=== PATIENT | male | born 1930 | race Caucasian/White ===

== ENCOUNTER 2017-01-14 09:38 | Inpatient (IN) | payer OTHER ==
--- NOTE | ~2017-01-14 | CO ---
Unit #: [id number] #: [id number] Patient: CONNOR FRANK [id number] [address] [place], [place] [address] [id number] I MR#: [id number] NAME: CONNOR FRANK. ROOM: 240 Age: 86 Sex: M Admission Date: 01/14/2017 : 1930 Attending Physician: Luis Felipe Saleh M.D. Primary Care Physician: Len Johnston M.D. Consultation Date: 01/17/2017 CONSULTATION REPORT REASON FOR CONSULTATION Voiding difficulty. HISTORY OF PRESENT ILLNESS This 86-year-old man has presented for evaluation of a large rectal tumor noted on colonoscopy. He has been seen by Gastroenterology, General Surgery, Oncology, and Radiation Oncology with completion of workup pending MRI and biopsy results and is otherwise ready for discharge from hospital. It is entirely clear at this time which treatment will be most appropriate. I am consulted, because he has clear voiding difficulty and voids more easily standing up and sitting down. He has frequency and urgency. He has been taking Flomax for three years. Bladder scans in the hospital postvoid have varied from 230 to 430 mL. He has been relatively comfortable and not required a Kinney catheter. He denies any history of gross hematuria, urinary infection, or stone disease. He has had PSA testing in the past. He appears cleared for major surgery from a cardiac viewpoint. PAST MEDICAL HISTORY Includes previous colonoscopies and polypectomy, BPH, diabetes, hypertension, hypercholesterolemia, glaucoma, primary AV block. PAST SURGICAL HISTORY Other than colonoscopies, right inguinal herniorrhaphy. MEDICATIONS Include Celebrex, Lipitor, hydrochlorothiazide, Glucophage, multivitamins, Flomax 0.4 mg daily, and Lotrel. ALLERGIES None known. FAMILY HISTORY Noncontributory. SOCIAL HISTORY Remote smoker. REVIEW OF SYSTEMS Voiding difficulties as above. No weight loss, melena, or hematochezia. Voiding symptoms as noted. Otherwise, negative review. PHYSICAL EXAMINATION Unit #: [id number] #: [id number] Patient: CONNOR FRANK GENERAL: The patient is a very alert, oriented, and conversant 86-year-old man. HEENT: Unremarkable. LUNGS: Clear. CARDIAC: Rate and rhythm regular. ABDOMEN: Soft and nontender. GENITALIA: Normal, circumcised penis. Testes and epididymis normal descended. RECTAL: Digital exam; normal anus, sphincter tone, tender hard mass in the left side of the rectum making prostatic examination difficult and incomplete. DIAGNOSTIC STUDIES LABORATORY RESULTS: Include BUN 6, creatinine 0.8, hemoglobin 12.0. IMAGING STUDIES: CT scan with IV contrast shows bilateral renal cysts. Otherwise, normal kidneys. Prostate enlargement moderate with a median lobe. Chronic bladder wall thickening. Left-sided bladder diverticulum in addition to the right rectal mass. IMPRESSION Severe prostatism and chronic urinary retention despite alpha ok therapy likely to progress the urinary retention regardless of whether an abdominal perineal resection or simply radiation and chemotherapy as likely bladder dysfunction will increase in addition to local effects on the prostate. I recommend strong consideration for a pre-emptive TUR of prostate, but would defer until after initial staging MRI and planned treatment course. PLAN May discharge home from [facility]. We will increase tamsulosin to twice daily and start him on finasteride after checking a PSA. We will await biopsy results and remainder of workup as well as clearance from all specialists and see the patient back in 2 weeks. Thank you for the consultationDm. Dictated by... Shen Astorga M.D. [facility]/jannette TD: 01/17/2017 15:36 JOB #: [id number] Mamadou Palmer M.D. Shen Aguilera M.D. Cody Stone M.D. Unit #: [id number] #: [id number] Patient: CONNOR FRANK CONSULTATION REPORT X Shen Astorga MD X CONSULTATION REPORT
--- NOTE | ~2017-01-14 | CR63 ---
[facility] A Service of [facility] & [facility] RADIOLOGY TEXT RESULTS PATIENT: CONNOR FRANK LOCATION: C2A 240-01 : [birth year] UNIT #: [id number] AGE: [address]: Luis Felipe Saleh MD SEX: M ORDER DR: [id number] [facility] [address] [place], [place] [address] [id number] I MR#: [id number] Acc #: [id number] NAME: CONNOR FRANK. : 1930 SEX: M STUDY DATE/TIME: 01/14/2017 17:23 UNIT: [facility] ROOM: 240 STUDY DESCRIPTION: CR Chest 2 View Attending Physician: Luis Felipe Saleh M.D. Ordering Physician: Jeff Wang M.D. Primary Care Physician: Len Johnston M.D. MEDICAL IMAGING REPORT This report is preliminary unless electronic signature is present EXAM Chest PA and lateral dated 01/14/2017 COMPARISON STUDIES None HISTORY Abdominal pain, chest pain and weakness today after colonoscopy. PA and lateral views of the chest are obtained. FINDINGS The heart size is normal. Vascular pattern is normal. Lungs are hyperinflated but clear. There is atherosclerotic disease in the aorta. CONCLUSION No active disease. Dictated by... Guilherme Woodard M.D. THIS IS AN ELECTRONICALLY VERIFIED REPORT Guilherme Woodard M.D. at 01/18/2017 5:10 PM IVANA/johnna TD: 01/15/2017 07:46 JOB #: [id number] MEDICAL IMAGING REPORT Page 1 of 1 COPY
--- NOTE | ~2017-01-14 | CO ---
Unit #: [id number] #: [id number] Patient: CONNOR FRANK [id number] [address] [place], [place] [address] [id number] I MR#: [id number] NAME: CONNOR FRANK ROOM: 240 Age: 86 Sex: M Admission Date: 01/14/2017 : 1930 Attending Physician: Luis Felipe Saleh M.D. Primary Care Physician: Len Johnston M.D. CONSULTATION REPORT REASON FOR CONSULTATION Preoperative evaluation. HISTORY OF PRESENT ILLNESS This is an 86-year-old white male, who presented for colonoscopy. He was found to have rectal mass and colon polyps that was suspicious for malignancy. The patient reports no abdominal pain, but had pain when sitting. He has no chest pain, palpitations, dizziness, or dyspnea. Because he may need a surgical intervention, cardiology was consulted. According to the patient, he has had no prior cardiac testing. He went to his primary care physician recently and was told that he had an irregular heartbeat and was scheduled to see a sales and management trainee in January. He cut the grass at least twice already this year without symptoms. He states he is fairly active. He reports no paroxysmal nocturnal dyspnea, orthopnea, or leg edema. PAST MEDICAL HISTORY 1. Hypertension. 2. Hyperlipidemia. 3. Diabetes mellitus, type 2. 4. Obstructive sleep apnea, does not wear CPAP. 5. Former smoker. PAST SURGICAL HISTORY Hernia repair. SOCIAL HISTORY The patient is . He quit smoking more than 40 years ago, but previously smoked more than a pack of cigarettes daily. Drinks beer on occasion. No illicit drug use. FAMILY HISTORY Negative for coronary artery disease. ALLERGIES No known drug allergies. HOME MEDICATIONS Celebrex 200 mg daily, Lipitor 10 mg daily, hydrochlorothiazide 12.5 mg daily, Glucophage 500 mg b.i.d., multivitamin one tablet daily, Flomax 0.4 mg q.h.s., Lotrel 5/20 mg one cap daily. REVIEW OF SYSTEMS CONSTITUTIONAL: Negative for weakness or fatigue. No fever or chills. Unit #: [id number] #: [id number] Patient: CONNOR FRANK HEENT: No headache, hearing or vision changes, or difficulty with swallowing. Negative for dizziness. CARDIOVASCULAR: Has no symptoms of angina. Denies palpitations. No paroxysmal nocturnal dyspnea or orthopnea. No syncope or near syncope. RESPIRATORY: Negative for dyspnea, cough, or hemoptysis. GASTROINTESTINAL: No abdominal pain, nausea, or vomiting. Denies hematochezia or melena. EXTREMITIES: Negative for lower extremity edema. PHYSICAL EXAMINATION VITAL SIGNS: Blood pressure 128/52, heart rate 74. BMI 27. GENERAL: This is a well-developed 86-year-old mildly obese white male, who is in no acute distress. NEUROLOGIC: He is awake, alert, and oriented. There are no focal weaknesses. NECK: Trachea is midline. No thyromegaly or lymphadenopathy. No jugular venous distention. HEART: S1 and S2. Heart sounds are normal. No murmurs. No rubs or clicks. Regularly irregular rhythm. ABDOMEN: Soft, slightly distended with bowel sounds are present. EXTREMITIES: With weak pedal pulses, but no leg edema. SKIN: Warm and dry. DIAGNOSTIC STUDIES LABORATORY RESULTS: Hemoglobin 13.3, hematocrit 41.0, platelet count 300, and white count 14.0. Chemistry is pending. IMAGING STUDIES: Chest x-ray pending. CARDIOVASCULAR STUDIES: EKG pending. IMPRESSION 1. Rectal mass, questionable malignancy. 2. Hypertension. 3. Hyperlipidemia. 4. Diabetes mellitus, type 2. 5. Obstructive sleep apnea. PLAN 1. Cardiology was consulted for preoperative evaluation. 2. The patient has no symptoms of angina. He has no heart failure noted on examination. 3. We will obtain EKG to evaluate his irregular rhythm. 4. 2D echocardiogram will be performed to evaluate left ventricular systolic function. 5. Because of multiple risk factors, the patient needs at least a stress Cardiolite scan. This has been discussed with the patient and family, they are agreeable. 6. We will obtain baseline chest x-ray. 7. Final determination of preoperative evaluation is pending Dr. Wang's evaluation and results of test. Thank you for allowing us to assist in this patient's care. Dictated by... Reese Funes A.P.R.N. for Jeff Wang M.D. Unit #: [id number] #: [id number] Patient: ZACCONNOR Liana AEP/jannette TD: 01/15/2017 04:05 JOB #: [id number] CONSULTATION REPORT X Reese Funes APRN CONSULTATION REPORT
--- NOTE | ~2017-01-14 | OR ---
Unit #: [id number] #: [id number] Patient: CONNOR FRANK [id number] [address] [address] [id number] I MR#: [id number] NAME: CONNOR FRANK ROOM: 240 Date of Procedure: 01/14/2017 Admission Date: 01/14/2017 Surgeon: Luis Felipe Saleh M.D. : 1930 Attending Physician: Luis Felipe Saleh M.D. Primary Care Physician: Len Johnston M.D. PROCEDURE OPERATIVE NOTE PROCEDURE PERFORMED Colonoscopy with biopsy. INDICATION Patient with irregular bowel movements, blood in stool, history of colon polyps in the past, undergoing colonoscopy for evaluation. MEDICATIONS Monitored anesthesia. POSTOP FINDINGS 1. Large rectal mass within a centimeter of the dentate line, goes up to 12 cm, firm. Multiple biopsies taken. Most likely malignant. 2. Small, 2 cm long, 0.5 cm wide hepatic flexure mass, biopsied. 3. Rest of the colon exam to cecum was normal. 4. Diverticulosis. PLAN Follow up on pathology report. Consider options, including surgery. DESCRIPTION OF PROCEDURE The patient was explained the procedure risks and benefits, along with the risk and benefits of anesthesia. He was brought to the endoscopy room. Propofol anesthesia was given. Rectal exam was done, which showed the firm mass as described above. Scope was lubricated and passed through the rectum and advanced under direction vision all the way to the cecum. Findings have been described. Biopsies taken from both masses. Gently the scope was pulled out. He tolerated it well. No immediate complications. Dictated by... Cody Alfaro/kedar TD: 01/18/2017 11:08 JOB #: [id number] Unit #: [id number] #: [id number] Patient: CONNOR FRANK PROCEDURE OPERATIVE NOTE X Luis Felipe Saleh MD PROCEDURE OPERATIVE NOTE
--- NOTE | ~2017-01-14 | CO ---
Unit #: [id number] #: [id number] Patient: MILES GRANADO [id number] [address] [place], [place] [address] [id number] I MR#: [id number] NAME: MILES GRANADO ROOM: 240 Age: 86 Sex: M Admission Date: 01/14/2017 : 1930 Attending Physician: Luis Felipe Saleh M.D. Primary Care Physician: Len Johnston M.D. CONSULTATION REPORT REASON FOR CONSULTATION Newly diagnosed rectal cancer with a second (1) polyp at the transverse colon. HISTORY OF PRESENT ILLNESS Mr. Miles Granado is 86 years old with a history of adenomatous polyposis who last underwent a colonoscopy in 2007 after having three polyps removed in 2004. He was recently re-evaluated because of incontinence with some rectal leakage. On colonoscopy on January 15, he was found to have a large mass in the rectum with a 1 cm dentate line extending to 12 cm involving two-thirds of the circumference with multiple biopsies taken. There was a smaller mass in transverse colon 2 cm x 0.5 cm which was biopsied. Biopsies were discussed with Dr. Ross. The rectal biopsy shows intramucosal adenocarcinoma while as the transverse colon polyp shows high-grade dysplasia but clear invasive malignancy could not be identified. He has since had a CT scan of the abdomen and pelvis along with a CA level. Postprocedure, Mr. Granado had a lot of abdominal discomfort which was relieved by evacuation of air on the rectal examination. Mr. Granado tells me he has lost about ten pounds in weight in the past six weeks or so, in part from anxiety. No prior history of any malignancy. PAST HISTORY 1. Glaucoma. 2. BPH. 3. Type 2 diabetes. 4. Hypertension. 5. Hypercholesterolemia. PAST SURGICAL HISTORY Right inguinal hernia repair. FAMILY HISTORY Negative for polyps or colon cancer. SOCIAL HISTORY Smoked briefly many years ago. Drinks alcohol rarely. He is and lives with his . He has four daughters. REVIEW OF SYSTEMS 14 point review of systems taken. CONSTITUTIONAL: Ten pound weight loss as discussed. EYES: Glaucoma. EARS, NOSE, MOUTH AND THROAT: Negative. Unit #: [id number] #: [id number] Patient: MILES GRANADO CARDIOVASCULAR: Negative. RESPIRATORY: Negative. GASTROINTESTINAL: As discussed. GENITOURINARY: Negative. NEUROLOGICAL: Negative. SKIN: Negative. PSYCHIATRIC: Negative. PHYSICAL EXAMINATION GENERAL: Pleasant, elderly man lying in bed, currently in no distress. VITAL SIGNS: Temperature is 98, pulse rate of 66, respiratory rate is 17, blood pressure 127/62. O2 sat 98% on room air. HEENT: Pupils are equal, react well to light. No pallor or icterus. Mucous membranes are moist. NECK: No lymphadenopathy, JVD or thyromegaly. CARDIOVASCULAR: S1 and S2 heart sounds are heard. Regular with no murmurs, gallops or rubs. LUNGS: Chest expansion was symmetric. Bilateral equal air entry. Normal breath sounds. ABDOMEN: Soft, nontender. Liver and spleen not palpable. Bowel sounds active. EXTREMITIES: Normal good pulses. No edema, cyanosis or clubbing. NEUROLOGICAL: He is awake, alert, oriented x3 without any focal findings. PSYCHIATRIC: Normal affect. SKIN: Negative. LYMPHATIC: No palpable lymph nodes. DIAGNOSTIC STUDIES LABORATORY: White count 14, hemoglobin 13.3, MCV is 91, platelet count is 300. Complete metabolic panel shows a BUN of 10, creatinine is 0.8, glucose of 136. LFTs are normal. CEA level is 1.2, normal. IMAGING: CT scan of the abdomen and pelvis was reviewed by me and discussed with Dr. Newman. He has no evidence of metastatic disease in the liver. The transverse colon polyp is not clearly visualized; however, he has a very low rectal cancer extending to the pelvic sidewall which appears to be infiltrating the left seminal vesicles in the plane that is difficult to establish from the prostate. ASSESSMENT AND PLAN Mr. Miles Granado is an 86-year-old with a history of benign prostatic hypertrophy, type 2 diabetes, admitted with rectal bleeding with findings of a very low lying rectal mass with biopsy showing intramucosal adenocarcinoma at the very least along with a second polyp in the transverse colon which shows high-grade dysplasia and is slightly malignant as well. CT scan done does not show evidence of metastatic disease but does show locally advanced rectal cancer possibly extending to the prostate and left seminal vesicles because of its very low location. Mr. Granado has also been having some voiding symptoms for some time which may be connected. I had an extensive discussion with Dr. Vandana Granado of pathology, Unit #: [id number] #: [id number] Patient: MILES GRANADO Dr., Dr. Mamadou Palmer of radiation oncology along with patient. RECOMMENDATIONS 1. Pelvic MRI with contrast as well as a PET CT scan to be done as an outpatient to better define local extent of disease and clarify distant metastatic disease. The PET CT scan will also give us additional information about the transverse colon polyp. 2. Postvoid residual volume with urological consultation, especially since the CT scan also shows a bladder diverticulum indicating that he may have chronic obstructive uropathy. 3. We discussed the plans that include concurrent chemoradiation therapy or thereafter (2) and, if he has a markedly good response, can consider nonoperative management of his rectal cancer but, given the local extent of disease, this seems unlikely. His transverse colon polyp will require it to be surgically removed and may be considered to be done laparoscopically depending upon the type of procedure he requires for his rectal cancer. Thank you for allowing me to participate in his care. Dictated by... Cody Stone/igor TD: 01/19/2017 06:40 JOB #: [id number] CONSULTATION REPORT Page 1 of 1 X Dm Brooke MD X CONSULTATION REPORT
--- NOTE | ~2017-01-14 | ST ---
Unit #: [id number] #: [id number] Patient: CONNOR FRANK [id number] [address] [place], [place] [address] [id number] I MR#: [id number] NAME: CONNOR FRANK. : 1930 SEX: M STUDY DATE/TIME: 01/15/2017 UNIT: C2A ROOM: 240 STUDY DESCRIPTION: Stress ECG and nuclear Attending Physician: Luis Felipe Saleh M.D. Primary Care Physician: Len Johnston M.D. CARDIOLOGY REPORT EXAM Stress ECG and nuclear study combined. INDICATIONS Abnormal EKG, preoperative clearance for colon resection in a patient unable to exercise adequately. SUMMARY The patient was given Lexiscan intravenously, and the patient walked on the treadmill at 1.5 MPH, 0% grade. As well, technetium 99m Cardiolite, 10.22 mCi and 32.4 mCi, at rest and stress respectively. Appropriate views were obtained. FINDINGS The rest and stress ECG showed no diagnostic ST shifts. There was nonspecific ST change noted in lead III and in AVF. At rest there were no significant PVCs. With stress there were single PVCs noted, occasional bigeminal, with occasional PACs. There were no symptoms noted. The heart rate increased from 79 to 116, and blood pressure did not change from 150/75 to 152/74. The patient did not experience any symptoms. Perfusion images demonstrate apical thinning at stress more than rest. There is diaphragmatic artifact both at rest and stress. There is intestinal artifact at both rest and stress. Otherwise, perfusion is normal and equivalent between rest and stress. Gated perfusion wall motion analysis demonstrates normal wall motion throughout the myocardium with end diastolic volume 97 mL, ejection fraction 57%. Planar images demonstrate no significant patient motion either at rest or stress. There is no significant lung uptake, LV or RV enlargement. Summed stress score is 1. IMPRESSION 1. Myocardial perfusion scan shows no ischemia or infarction. Inferior wall changes likely related to diaphragmatic artifact. 2. Normal stress ECG with walking Lexiscan. 3. Benign ventricular ectopy with Lexiscan. No treatment necessary for this. 4. Based on these findings, the patient would be considered at low risk for cardiac event from noncardiac surgery. Unit #: [id number] #: [id number] Patient: CONNOR FRANK Dictated by... Cody Escobar/kedar TD: 01/18/2017 10:04 JOB #: [id number] CARDIOLOGY REPORT X Corey Garner MD CARDIOLOGY REPORT
--- NOTE | ~2017-01-14 | ST ---
Unit #: [id number] #: [id number] Patient: CONNOR FRANK [address] [address] [id number] I MR#: [id number] NAME: CONNOR FRANK. : 1930 SEX: M STUDY DATE/TIME: 01/15/2017 UNIT: C2A ROOM: 240 STUDY DESCRIPTION: Stress Test Attending Physician: Luis Felipe Saleh M.D. Primary Care Physician: Len Johnston M.D. CARDIOLOGY REPORT EXAM Walking Lexiscan EKG Portion REASON FOR TESTING Abnormal EKG and preop clearance for colon mass per Dr. Saleh. DESCRIPTION The patient had a resting heart rate of 79 beats/minute and a blood pressure of 150/75 prior to infusion with Lexiscan. He had frequent PVCs noted but was in normal sinus rhythm. The patient received a total of 0.4 mg of Lexiscan injected per protocol followed by Cardiolite imaging. Patient's symptoms included none. Patient had no obvious ST changes but did have some frequent PVCs which were noted at both rest and during stress. The patient walked for a total of 4 minutes per protocol achieving a work level of 1.9 METs. Resting heart rate was 79 beats/minute, karma to a maximum heart rate of 120 beats/minute which represented 90% of the maximal age-predicted heart rate. Resting blood pressure of 150/75 karma to a maximum blood pressure of 152/74. The test was stopped due to protocol completion. IMPRESSION 1. This is a negative EKG portion of a walking Lexiscan Cardiolite test. 2. No ST segment changes were noted. 3. Patient was asymptomatic pre-infusion and post-infusion. 4. Patient had frequent PVCs with intermittent bigeminy and couplet complexes. However, patient was asymptomatic with these denying any palpitations. 5. Please correlate with Cardiolite imaging. Dictated by... NICHELLE Quach TD: 01/16/2017 07:45 JOB #: [id number] Unit #: [id number] #: [id number] Patient: CONNOR FRANK CARDIOLOGY REPORT X CARDIOLOGY REPORT
--- NOTE | ~2017-01-14 | EKG ---
PATIENT: CONNOR FRANK UNIT #: [id number] Ventricular Rate: 78 BPM Atrial Rate: 78 BPM P-R Interval: 210 ms QRS Duration: 90 ms Q-T Interval: 380 ms QTC Calculation(Bezet): 433 ms P Traphill: 49 degrees Calculated R Traphill: 8 degrees Calculated T Traphill: 2 degrees Diagnosis Line: Sinus rhythm with sinus arrhythmia with 1st degree Diagnosis Line: A-V block Diagnosis Line: Inferior infarct , age undetermined Baseline Diagnosis Line: wander Diagnosis Line: Abnormal ECG Diagnosis Line: No previous ECGs available Diagnosis Line: Confirmed by LOIS DIAZ MD ([id number]) on 01/15/2017 Diagnosis Line: 12:05:27 PM INTERPRETING MD: EMILY PETER
--- NOTE | ~2017-01-14 | CR4 ---
[facility] A Service of [facility] RADIOLOGY TEXT RESULTS PATIENT: CONNOR FRANK LOCATION: [facility] 240 : [birth year] UNIT #: [id number] AGE: [address]: Luis Felipe Saleh MD SEX: M ORDER DR: [id number] [facility] [address] [place], [place] [address] [id number] I MR#: [id number] Acc #: [id number] NAME: CONNOR FRANK. : 1930 SEX: M STUDY DATE/TIME: 01/14/2017 13:29 UNIT: [facility] ROOM: [facility] STUDY DESCRIPTION: CR Abdomen Flat Upright or Dec Attending Physician: Luis Felipe Saleh M.D. Ordering Physician: Luis Felipe Saleh M.D. Primary Care Physician: Len Johnston M.D. MEDICAL IMAGING REPORT This report is preliminary unless electronic signature is present EXAM Flat and upright abdomen in 5 views date of study 01/14/2017 COMPARISON None HISTORY Abdominal pain for one day following colonoscopy. FINDINGS There is mild gaseous distention of small and large bowel but there is no evidence on the supine images to suggest free intraperitoneal air. If there is continued concern about free intraperitoneal air, left lateral decubitus view of the abdomen might be helpful. Dictated by... Christopher Iraheta M.D. THIS IS AN ELECTRONICALLY VERIFIED REPORT Christopher Iraheta M.D. at 01/15/2017 4:12 PM TEV/rnr TD: 01/14/2017 19:36 JOB #: [id number] MEDICAL IMAGING REPORT COPY
--- NOTE | ~2017-01-14 | HP ---
Unit #: [id number] #: [id number] Patient: CONNOR FRANK [id number] [address] [place], [place] [address] [id number] I MR#: [id number] NAME: CONNOR FRANK. ROOM: 240 Age: 86 Sex: M Admission Date: 01/14/2017 : 1930 Attending Physician: Luis Felipe Saleh M.D. Primary Care Physician: Len Johnston M.D. HISTORY AND PHYSICAL HISTORY AND EXAM Mr. Aquino is an 86-year-old gentleman with a history of adenomatous polyps of the colon who underwent colonoscopy by Dr. Saleh today. On endoscopic evaluation there was a polyp at the hepatic flexure that was biopsied and there was a mass in the rectal vault that was concerning for malignancy. It has also been biopsied. We were asked to see the patient when he was in post endoscopy recovery because of the rectal mass. The patient is still under the effects of his sedation, so history and evaluation were done primarily with his family. PAST MEDICAL HISTORY He has a history of glaucoma. 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 He has had two prior colonoscopies with polypectomy. He has benign prostatic hypertrophy, type 2 diabetes, hypertension, hypercholesterolemia and he has had a previous right inguinal hernia repair. He reportedly had a spider but to the leg many years ago. FAMILY HISTORY The family is unaware of any chronic or inheritable diseases except for arthritis and diverticulitis. SOCIAL HISTORY Nonsmoker for many years. Only a social alcohol drinker. He is retired from [employer]. He has four daughters and one son and multiple grandchildren and great grandchildren. REVIEW OF SYSTEMS No hematemesis, hematochezia or melena. No fever, chills, or jaundice. No unexpected weight loss. PHYSICAL EXAMINATION VITAL SIGNS: At the time of endoscopy temperature is 97.1, pulse 94, respirations 18, blood pressure 128/59. GENERAL: He was awake and alert but he is currently in recovery and still somewhat sedated. HEENT: Was unremarkable. CARDIAC: Regular rhythm. LUNGS: Clear. ABDOMEN: Slightly distended but soft. No rebound tenderness. EXTREMITIES: No edema. NEUROLOGIC: Grossly intact. DIAGNOSTIC STUDIES Unit #: [id number] #: [id number] Patient: CONNOR FRANK LABORATORY STUDIES: His white count is 14,000, hemoglobin 13.3, with normal indices. Platelets 300,000. Chemistries are still pending. CEA level has been ordered and is pending. IMAGING STUDIES: CT scan has been ordered and is pending. ASSESSMENT AND PLAN 86-year-old gentleman with a rectal mass concerning for malignancy. Patient is being evaluated and we will speak with medical oncology to determine the most appropriate course of treatment. I discussed at length with the family the treatment of rectal cancer with a combination of surgery, chemotherapy and radiation therapy and stated that based on his clinical stage will determine whether or not he needs preoperative adjuvant therapy or whether he should go straight to surgery. Due to his age and diabetes and primary AV block, we will as cardiology to see the patient for preoperative clearance. Medical oncology is yet to see the patient. I have discussed this at length with is , two daughters, and a granddaughter and we will continue to follow him while he is here. Dictated by Cody Orantes/lena TD: 01/15/2017 06:06 JOB #: [id number] HISTORY AND PHYSICAL X Shen Aguilera MD HISTORY AND PHYSICAL
--- NOTE | ~2017-01-14 | MR151 ---
[facility] A Service of [facility] & [facility] RADIOLOGY TEXT RESULTS PATIENT: CONNOR FRANK LOCATION: C2A 240-01 : [birth year] UNIT #: [id number] AGE: [address]: Luis Felipe Saleh MD SEX: M ORDER DR: [id number] [facility] [address] [place], [place] [address] [id number] I MR#: [id number] Acc #: [id number] NAME: CONNOR FRANK. : 1930 SEX: M STUDY DATE/TIME: 01/18/2017 10:57 UNIT: [facility] ROOM: 240 STUDY DESCRIPTION: MR Pelvis WWo Contrast Attending Physician: Luis Felipe Saleh M.D. Ordering Physician: Luis Felipe Saleh M.D. Primary Care Physician: Len Johnston M.D. MRI CENTER REPORT This report is preliminary unless electronic signature is present. EXAM MRI pelvis with and without contrast INDICATIONS Rectal mass on colonoscopy. Rectal mass. Staging. Unexplained 10 pounds weight loss over the past 2 months. PROCEDURE Multiplanar, multisequence MR imaging of the pelvis prior to and following 20 mL of MultiHance COMPARISON STUDIES CT from 01/15/2017 FINDINGS Pelvis without contrast: There is a large rectal mass. It measures approximately 9.4 cm in length. Inferior margin extends into the lower rectum proximally today. No rectal junction. The mass is circumferential. It has a large, fungating component that extends beyond the wall of the rectum, along the left lower margin of the mass at approximately 3 o'clock. This component measures approximately 3.0 x 2.7 cm and has a broad interface with the mesial rectal fascia and upper left pelvic floor muscles. The mass abuts the posterior margin of the prostate gland, but there is no definite extension into the prostate gland. No evidence for involvement of the seminal vesicles. There is some stranding seen in the mesial rectal fat but no discrete enlarged lymph nodes. No pathologically enlarged lymph nodes are seen elsewhere in the pelvis. Prostate gland is enlarged and diffusely heterogeneous in keeping with prostatic hyperplasia. The bladder wall is mildly thickened and trabeculated keeping with chronic outlet obstruction. There is a 2.7 cm diverticulum along the left superior aspect of the bladder. [facility] A Service of [facility] RADIOLOGY TEXT RESULTS PATIENT: CONNOR FRANK LOCATION: [facility] 240-01 : [birth year] UNIT #: [id number] AGE: [address]: Luis Felipe Saleh MD SEX: M ORDER DR: No pelvic fluid collection. There are multiple diverticula in the sigmoid colon. Pelvis with contrast: The rectal mass enhances. There is enhancement of the mesial rectal fascia and left pelvic floor muscles are suspicious for involvement by tumor. No abnormal enhancement is seen elsewhere in the pelvis. IMPRESSION 1. Large of low rectal mass as detailed above. 2. Large component extending beyond the wall of the rectum, along the lower left margin of the tumor has a broad interface with the mesial rectal fascia and suspicion for involvement of the left pelvic floor musculature. Overall findings in keeping with a T3D lesion. 3. There is no convincing evidence for involvement of the adjacent organs such as prostate gland or seminal vesicles. 4. No discrete pathologically enlarged lymph nodes are seen in the mesial rectal fat or elsewhere in the pelvis. Dictated by... Robles Moody M.D. THIS IS AN ELECTRONICALLY VERIFIED REPORT Robles Moody M.D. at 01/19/2017 10:02 AM Ashley TD: 01/18/2017 22:51 JOB #: [id number] MRI CENTER REPORT Page 1 of 1 COPY
--- NOTE | ~2017-01-14 | CT2 ---
[facility] A Service of [facility] & [facility] RADIOLOGY TEXT RESULTS PATIENT: CONNOR FRANK LOCATION: C2A 240 : [birth year] UNIT #: [id number] AGE: [address]: Luis Felipe Saleh MD SEX: M ORDER DR: [id number] [facility] [address] [facility] [place], [place] [address] [id number] I MR#: [id number] Acc #: [id number] NAME: CONNOR FRANK. : 1930 SEX: M STUDY DATE/TIME: 01/15/2017 11:52 UNIT: [facility] ROOM: 240 STUDY DESCRIPTION: CT Abd and Pelv W Cont Attending Physician: Luis Felipe Saleh M.D. Ordering Physician: Shen Aguilera M.D. Primary Care Physician: Len Johnston M.D. MEDICAL IMAGING REPORT This report is preliminary unless electronic signature is present EXAM Abdomen and pelvis CT with contrast. HISTORY Rectal cancer. Change in bowel loops over the past 2 months. Additional history of an atypical lesion in the hepatic flexure of the colon on colonoscopy. TECHNIQUE Axial images were obtained with oral and intravenous contrast. 100 mL of Isovue was used. This CT exam was performed with one or more of the following radiation dose reduction techniques: automatic exposure control, adjustment of mA and/or kV according to patient size, and iterative reconstruction. FINDINGS There is mild linear scarring or atelectasis at both lung bases. No upper abdominal solid organ abnormalities are seen. There are bilateral simple renal cysts. No discrete masses are seen in the hepatic flexure of the colon to correlate with the endoscopic finding. In the sigmoid colon diverticulosis is seen. The appendix is normal. Scans into the pelvis show a rectal mass that projects more to the left than to the right extending out the pelvic sidewalls and anal sling on the left side. I do not see a good tissue plane between the rectal mass and the posterior margin of the prostate, as well as the base of the seminal vesicles especially on the left, and I suspect direct involvement of the left seminal vesicle and possibly the prostate gland with this tumor. No enlarged pelvic lymph nodes are seen. No osseous abnormalities are noted. IMPRESSION 1. Large some ill-defined rectal mass extending more to the left than to STS. [facility] A Service of [facility] RADIOLOGY TEXT RESULTS PATIENT: CONNOR FRANK LOCATION: C2A 240-01 : [birth year] UNIT #: [id number] AGE: [address]: Luis Felipe Saleh MD SEX: M ORDER DR: the right with direct involvement of the anal sling. There is probably invasion of the posterior aspect of the prostate and base of the seminal vesicles, particularly on the left. 2. No evidence of adenopathy. 3. No evidence of distant metastatic disease. 4. No abnormalities are seen in the region of the hepatic flexure of the colon to correlate with the endoscopic finding. Dictated by... Shen Newman M.D. THIS IS AN ELECTRONICALLY VERIFIED REPORT Shen Newman M.D. at 01/15/2017 4:55 PM JOCELYN/james TD: 01/15/2017 16:35 JOB #: [id number] MEDICAL IMAGING REPORT COPY
--- NOTE | ~2017-01-14 | A ---
[facility] Nutrition Therapy DATE: 01/15/17 Patient: CONNOR FRANK Physician: ANITA Address: [address] Room/Bed: [address] [place] [address], Zip: [place] [address] Admit Date: 01/14/17 Date of : [birth year] Height: 5 11 Weight: [phone] NUTRITIONAL ASSESSMENT: REASON: 2 NUTRITION RISK PT RE: 10# WEIGHT LOSS NOTED PT IS 86 Y.O. MALE ADMITTED FOR CHANGE IN BOWEL HABITS PMH: HTN, HLD, T2DM, BRENDA, BPH Anthropometrics: 5'11", WT: 210# (95 KG), BMI: 29.3 Labs: BUN: 8, NA+:132, ALB: 3.3, PRE-ALB: 15.7 Meds: LIPITOR, NOVOLOG, KCL, ZOFRAN, PROTONIX I/O & Bowel function: 1360/7, 2 BMs NOTED Skin Integrity: NO KNOWN SKIN ISSUES Estimated Nutrition Needs: INCREASED NUTRIENT NEEDS 2' CURRENT CONDITION, DECREASED PO INTAKE AND APPETITE NOTED, WEIGHT LOSS NOTED Assessment: CHART REVIEWED AND EVENTS NOTED. PT SEEN FOR WEIGHT LOSS. PT REPORTS DECREASED PO INTAKE 2' DECREASED APPETITE PAST SEVERAL MONTHS. PT REPORTS LOSING ~10# WEIGHT PAST 6 MONTHS/4.5% WEIGHT LOSS NOTED. THIS RD ENCOURAGED SMALL FREQUENT MEALS + SUPPLEMENT INTAKE, PT AGREED TO ENSURE CLEAR BID (PT CURRENTLY ON CLEAR LIQUID DIET). PER RN AND CHART, RECTAL MASS NOTED, ?MALIGNANCY. PT AND FAMILY IN ROOM REPORTED NO DIET QUESTIONS AT THIS TIME. RD TO FOLLOW. SEE RECOMMENDATIONS BELOW. Dx: INADEQUATE ORAL INTAKE R/T DECREASED APPETITE, DX AEB PT REPORT ABOVE, 10#/4.5% WEIGHT LOSS NOTED IN PAST 6 MONTHS. Intervention: 1. CLEAR LIQUID DIET 2. ENSURE CLEAR BID Monitoring, Evaluation and Goals: 1. PO INTAKE; PROVIDE AND CONSUME ADEQUATE NUTRITION W/NO C/O N/V/D (PO>50%) 2. WEIGHTS; PREVENT FURTHER UNINTENTIONAL WEIGHT LOSS 3. LABS; WNL: GLU MONITOR: -DIET ADVANCEMENT -PO INTAKE/APPETITE -SUPPLEMENT INTAKE [facility] Nutrition Therapy DATE: 01/15/17 Patient: CONNOR FRANK Physician: ANITA Address: [address] Room/Bed: [address] [place] [address], Zip: [place] [phone] Admit Date: 01/14/17 Date of : [birth year] Height: 5 11 Weight: [phone] Recommendations: 1. ORDER APPLE ENSURE CLEAR BID W/MEALS 2. ONCE MEDICALLY FEASIBLE, ADVANCE DIET INDICATED TO REGULAR TO BETTER FACILITATE PO INTAKE 3. APPRECIATE FAMILY AND STAFF TO ENCOURAGE ADEQUATE KCAL AND PROTEIN INTAKE RD WILL F/U PER PROTOCOL PT IS MILD/MODERATELY COMPROMISED Respectfully, SUBHA GAVIRIA MS, RD, LD Food and Nutritional [facility] cc: client file
--- NOTE | ~2017-01-14 | OR ---
Unit #: [id number] #: [id number] Patient: CONNOR FRANK [id number] [address] [address] [id number] I MR#: [id number] NAME: CONNOR FRANK. ROOM: 240 Date of Procedure: 01/14/2017 Admission Date: 01/14/2017 Surgeon: Luis Felipe Saleh M.D. : 1930 Attending Physician: Luis Felipe Saleh M.D. Primary Care Physician: Len Johnston M.D. OPERATIVE REPORT PROCEDURE PERFORMED Colonoscopy with biopsies. INDICATIONS FOR PROCEDURE An 86-year-old gentleman presented with altered bowel movements, history of polyps, history of blood in the stool, undergoing colonoscopy for evaluation. MEDICATIONS Monitored anesthesia. POSTOPERATIVE FINDINGS 1. Large mass in the rectum within 1 cm of dentate line, extending to 12 cm involving about two-third of the circumference. Multiple biopsies taken. 2. Smaller mass in transverse colon, 2 cm long 0.5 cm wide, biopsied. 3. Rest of the colon exam to cecum was normal. 4. Diverticulosis. PLAN Follow up on pathology report. Consider surgical and other treatment options. DESCRIPTION OF PROCEDURE The patient was explained of the procedure, risks, and benefits along with risks and benefits of anesthesia. He was brought to the endoscopy room. Rectal exam was done, which showed some mass as described. The scope was lubricated, passed up the rectum, advanced under direct vision all the way to the cecum. Cecum was identified by ileocecal valve and appendiceal orifice. Findings as described above. I pulled the scope out carefully after biopsies. He tolerated it well. No major complications were seen. Dictated by... Cody Alfaro/jannette TD: 01/15/2017 06:07 JOB #: [id number] Unit #: [id number] #: [id number] Patient: CONNOR FRANK OPERATIVE REPORT X Luis Felipe Saleh MD PROCEDURE OPERATIVE NOTE
--- NOTE | ~2017-01-14 | TH ---
Unit #: [id number] #: [id number] Patient: CONNOR FRANK [id number] [address] [address] [id number] I MR#: [id number] NAME: CONNOR FRANK. : 1930 SEX: M STUDY DATE/TIME: UNIT: C2A ROOM: 240 STUDY DESCRIPTION: Nuclear Study Attending Physician: Luis Felipe Saleh M.D. Primary Care Physician: Len Johnston M.D. CARDIOLOGY REPORT EXAM Lexiscan Cardiolite Stress Test - Nuclear Portion PROCEDURE Using technetium 99m labeled Cardiolite, rest and stress SPECT images were obtained. Multiple SPECT images were obtained in various views including horizontal and vertical long axis and short axis views of the left ventricle. Images were obtained by gated SPECT method. The patient was administered 10.22 mCi of Cardiolite at rest. The patient was administered 32.4 mCi of Cardiolite after Lexiscan infusion was completed. On the stress images, there is normal perfusion noted. The rest images show normal perfusion. Comparing rest and stress images, there is no stress-induced ischemia noted. The left ventricular ejection fraction is calculated to be 57%. There is no focal wall motion abnormality seen. CONCLUSION 1. No stress-induced ischemia noted. 2. The left ventricular ejection fraction is calculated to be 57%. 3. There is no focal wall motion abnormality seen. 4. Normal Lexiscan Cardiolite stress test. Dictated by... Cody Maravilla TD: 01/16/2017 07:26 JOB #: [id number] Unit #: [id number] #: [id number] Patient: CONNOR FRANK CARDIOLOGY REPORT X Katyha Gomez MD <ELECTRONICALLY SIGNED> 05/22/17 1429 CARDIOLOGY REPORT
--- NOTE | ~2017-01-14 | HP ---
Unit #: [id number] #: [id number] Patient: CONNOR FRANK [id number] [address] [place], [place] [address] [id number] I MR#: [id number] NAME: CONNOR FRANK. ROOM: 240 Age: 86 Sex: M Admission Date: 01/14/2017 : 1930 Attending Physician: Luis Felipe Saleh M.D. Primary Care Physician: Len Johnston M.D. HISTORY AND PHYSICAL REASON FOR ADMISSION/HISTORY OF PRESENT ILLNESS Patient initially presented to the office last week with reports of rectal leakage as well as rectal pressure. Reports about a 10-pound weight loss. Denied any pain, denied nausea or vomiting. Patient was at that time set up for colonoscopy as an outpatient which was completed and found to have a large rectal mass as well as a polyp at the hepatic flexure. Biopsy is still pending. PAST MEDICAL HISTORY 1. Hypertension. 2. Hyperlipidemia. 3. Type 2 diabetes. 4. Obstructive sleep apnea. 5. Reformed smoker. 6. Previous hernia repair. HOME MEDICATIONS 1. Celebrex. 2. Lipitor. 3. Hydrochlorothiazide. 4. Glucophage. 5. Multivitamin. 6. Flomax. 7. Lotrel. ALLERGIES None known. SOCIAL HISTORY Patient is , lives at home with his . He is a reformed smoker. Drinks beer occasionally. Denies any illicit drug use. FAMILY HISTORY Reviewed and noncontributory. REVIEW OF SYSTEMS A complete 10-point review of systems was completed and negative except as mentioned in the HPI. PHYSICAL EXAMINATION VITAL SIGNS: Temperature 97.7, pulse 62, respirations 18, blood pressure 135/66. GENERAL: Patient is a very pleasant, healthy, elderly-appearing 86-year-old male currently in no acute distress. Unit #: [id number] #: [id number] Patient: CONNOR FRANK HEENT: YOLANDERLA. NECK: Supple. LUNGS: Clear to auscultation. HEART: S1, S2. ABDOMEN: Soft, rounded, nontender, nondistended. Positive bowel sounds. NEUROLOGIC: Patient is alert and oriented x3. DIAGNOSTIC STUDIES LABORATORY: White 8.5, hemoglobin 12, hematocrit 36.5, platelets 322. Chemistry is normal. CEA is 1.2. ASSESSMENT AND PLAN 1. Rectal mass. Workup with surgeons, oncology, radiation oncologist for further evaluation and treatment. Will await biopsy for confirmation. 2. Benign prostatic hypertrophy. 3. Weight loss. 4. We will continue based on consultants recommendations. Dictated by Becca Sanchez A.P.R.N. for Cody Alfaro/dary TD: 01/16/2017 12:05 JOB #: [id number] HISTORY AND PHYSICAL X X HISTORY AND PHYSICAL
--- NOTE | ~2017-01-14 | CO ---
Unit #: [id number] #: [id number] Patient: CONNOR GRANADO [id number] [address] [place], [place] [address] [id number] I MR#: [id number] NAME: CONNOR GRANADO ROOM: 240 Age: 86 Sex: M Admission Date: 01/14/2017 : 1930 Attending Physician: Luis Felipe Saleh M.D. Primary Care Physician: Len Johnston M.D. 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 CHIEF COMPLAINT Extreme difficulty with bowel movements and fecal incontinence. HISTORY OF PRESENT ILLNESS The patient is a pleasant 86-year-old gentleman who gives a 2- to 3-month history of change in stool diameter, as well as production of watery stools. The patient states that he is having a great deal of difficulty trying to pass fecal material and was straining. He states that he was having some fecal incontinence, and this occurred even with urination. The patient sought medical attention. He underwent initial evaluation by Dr. Luis Felipe Saleh who performed colonoscopy with biopsies. This procedure, dated 01/14/17, had findings demonstrating a large mass within the rectum within 1 cm of the dentate line extended 12 cm cranially and involved 2/3 of the circumference of the bowel. There was a small amount in the transverse colon measuring some 2 cm x 0.5 cm, which was also evaluated and biopsied. No bleeding was seen during this procedure. 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 The patient has been evaluated by Dr. Shen Aguilera and CT scan of the abdomen and pelvis was obtained. This study was significant in that there were no hepatic lesions appreciated. There was a large obstructing mass in the distal rectum, as previously described. This was eccentric with the lumen, more to the right side. There was possible invasion of the right seminal vesicle. This lesion appeared somewhat fixed without obvious tissue planes in some locations. The patient has been seen by Dr. Dm Brooke, as well. A CEA level obtained during admission was very low at 1.2. A 2-view chest film has also been obtained and demonstrated normal heart size with no active disease. RECOMMENDATIONS We are still evaluating Mr. Granado. By CT imaging, he has an aggressive appearing, locally advanced adenocarcinoma of the rectum. I will need to proceed with MRI of the pelvis to get a better idea of tissue planes, as well as possible kayley involvement outside of the rectal wall. This will also help delineate potential invasion of the seminal vesicles, which would make resection much more difficult. The patient will also need outpatient PET CT imaging to complete staging and identify any areas of subtle microscopic involvement, particularly looking at the liver. Final recommendations will be made upon review of these studies. At this point, it appears that the patient will likely not be a candidate for low anterior resection, given how low this mass is and how invasive it appears Unit #: [id number] #: [id number] Patient: CONNOR GRANADO on imaging studies. He may still be a candidate for neoadjuvant chemoradiotherapy if this would benefit the surgical procedure, which would likely be an APR. If the patient were to have metastatic disease, then certainly, these recommendations would be altered substantially with an emphasis more on palliative systemic chemotherapy. The patient's local obstruction will need to be addressed. This can improve significantly with chemoradiotherapy, or the patient may require diverting colostomy. We will discuss these issues further with Dr. Aguilera. We await the upcoming studies. It is certainly my pleasure to participate in his care. PAST MEDICAL HISTORY Past medical history is remarkable for systemic hypertension, diabetes - controlled with medications, sleep apnea. In addition to these problems, the patient has glaucoma. He has cardiac arrhythmia and has primary AV block. He describes benign prostatic hyperplasia, hypercholesterolemia and previous right inguinal hernia repair. MEDICATIONS Medications include Flomax, low dose NovoLog insulin as needed, Lovenox, Zofran, Celebrex, Lotrel 2.5/10, Proteinex, Hydrochlorothiazide. ALLERGIES The patient has no allergies listed. SOCIAL HISTORY The patient is a nonsmoker for many years. He is just a social drinker. He did smoke excessively, at one time a pack a day. The patient denies illicit drug use. FAMILY HISTORY Negative for coronary artery disease or other known malignancies. REVIEW OF SYSTEMS The patient denies seizure activity, chest pain, extreme shortness of breath, hemoptysis, hematemesis or leg edema. PHYSICAL EXAMINATION VITAL SIGNS: Temperature 98, pulse 56, respirations 17, blood pressure 127/62, height 5'11", weight 210 pounds, BMI 27. HEAD AND NECK EXAM: Pupils are equal, round and reactive to light and accommodation. Extraocular movements are within normal limits. The patient does wear glasses for vision correction. NECK: Without adenopathy. Supraclavicular fossa unremarkable, as well. LUNGS: Auscultated breath sounds are distant but clear. CARDIOVASCULAR: Slow, regular rhythm without gallop or murmur. AXILLA: Unremarkable. ABDOMEN: Soft, no tenderness or mass. Biopsy positive. No hepatosplenomegaly appreciated. EXTREMITIES: Without gross edema. Patient did have a postvoid "urinalysis" and found to have 244 mL. RECTAL: Examination demonstrates no anal lesion. Perianal skin unremarkable. Rectal exam demonstrates palpable mass involving the right lateral and posterior rectum. It is very close, within 1 cm to 2 cm of the dentate line. This mass extends circumferentially to the left side, as well. It is hard, fixed and extends beyond the examining finger. There is no bleeding associated with this mass. DIAGNOSTIC STUDIES Unit #: [id number] #: [id number] Patient: CONNOR GRANADO LABORATORY DATA: Glucose 110, creatinine 0.8, potassium 4, albumin 3.3. Liver enzymes within normal limits. CEA 1.2. Alkaline phosphatase is 61. WBC 9.3, hemoglobin 11.9, platelet count 351,000. NOTE: Approximately 1 hour was spent discussing case with the patient. Dictated by... Cody Chase/kedar TD: 01/15/2017 15:07 JOB #: [id number] CC: Cody Orantes M.D. CONSULTATION REPORT X Mamadou Palmer MD X CONSULTATION REPORT
[~2017-01-14 09:38] MED LIST: CELEBREX PO; FLOMAX0.4 M1 PO; HCTZ PO; LEXAPRO PO; LIPITOR PO; LOTREL 5-20 MG1 CAP PO; LOTREL 5/20 MG1 CAP PO; METFORMIN PO; MULTI-VITAMIN1 TAB PO; TIMOPTIC-XE5 M1 OU
[2017-01-14 13:39] LABS: BASOPHIL% 0.3 % (0-2.5); EOSINOPHIL% 0.1 % (0.0-7.0); HEMOGLOBIN 13.3 gm/dL (13.0-16.0); LYMPHOCYTE# 1.3 X10e3 (1.0-3.5); LYMPHOCYTE% 9.3 % (17.0-45.0); MEAN CORPUSCULAR HEMOGLOBIN 29.4 PG (28-34); MEAN CORPUSCULAR HGB CONC 32.4 g/dL (30-36); MONOCYTE# 1.2 X10e3 (0-1.0); MONOCYTE% 8.4 % (3.0-12.0); NEUTROPHIL# 11.5 X10e3 (1.5-7.1); NEUTROPHIL% 81.9 % (40-75); PLATELET COUNT 300 X10e3 (140-420); RED BLOOD COUNT 4.51 X10e (3.90-5.60); RED CELL DISTRIBUTION WIDTH 14.9 % (11.0-15.5)
[2017-01-14 13:40] LABS: DIFF IND NO
[2017-01-14] MEDS ORDERED: AMARYL PO (14:32)
[2017-01-14] MEDS ORDERED: LOTREL 5/101 CAP PO (14:34)
[2017-01-14 21:00] LABS: ALBUMIN SERUM 3.8 g/dL (3.5-5.0); ALKALINE PHOSPHATASE 67 U/L (32-92); ALT (SGPT) 17 U/L (10-40); AST (SGOT) 14 U/L (10-42); BILIRUBIN,TOTAL 1.1 mg/dL (0.2-2.0); BLOOD UREA NITROGEN 10 mg/dL (9-23); CALCIUM SERUM 9.4 mg/dL (8.4-10.2); CARBON DIOXIDE 23 mmol/L (22-31); CHLORIDE 103 mmol/L (100-111); CREATININE SERUM 0.8 mg/dL (0.6-1.4); GLOM FILT RATE Estimated ABOVE60 mL/min (>60); GLUCOSE FASTING 136 mg/dL (70-110); POTASSIUM 4.9 mmol/L (3.5-5.1); PROTEIN TOTAL SERUM 7.4 g/dL (6.0-8.3); SODIUM 134 mmol/L (135-145)
[2017-01-15 05:51] LABS: HEMATOCRIT 36.6 % (38.0-50.0); HEMOGLOBIN 11.9 gm/dL (13.0-16.0); MEAN CELL VOLUME 89.2 FL (83-96); MEAN CORPUSCULAR HEMOGLOBIN 29.1 PG (28-34); MEAN CORPUSCULAR HGB CONC 32.6 g/dL (30-36); MEAN PLATELET VOLUME 8.7 FL (6.5-11.5); RED BLOOD COUNT 4.1 X10e (3.90-5.60); RED CELL DISTRIBUTION WIDTH 14.6 % (11.0-15.5); WHITE BLOOD COUNT 9.3 X10e3 (4.0-10.5)
[2017-01-15 06:34] LABS: ALBUMIN SERUM 3.3 g/dL (3.5-5.0); ALKALINE PHOSPHATASE 61 U/L (32-92); ALT (SGPT) 14 U/L (10-40); AST (SGOT) 13 U/L (10-42); BILIRUBIN,TOTAL 0.7 mg/dL (0.2-2.0); BLOOD UREA NITROGEN 8 mg/dL (9-23); CALCIUM SERUM 8.7 mg/dL (8.4-10.2); CARBON DIOXIDE 27 mmol/L (22-31); CHLORIDE 101 mmol/L (100-111); CREATININE SERUM 0.8 mg/dL (0.6-1.4); GLOM FILT RATE Estimated ABOVE60 mL/min (>60); GLUCOSE FASTING 110 mg/dL (70-110); MAGNESIUM 2.2 mg/dL (1.6-3.0); PHOSPHOROUS 3.9 mg/dL (2.5-4.6); PREALBUMIN 15.7 mg/dL (17.0-42.0); PROTEIN TOTAL SERUM 6.2 g/dL (6.0-8.3); SODIUM 132 mmol/L (135-145)
[2017-01-16 07:01] LABS: HEMATOCRIT 36.5 % (38.0-50.0); MEAN CELL VOLUME 88.3 FL (83-96); MEAN CORPUSCULAR HEMOGLOBIN 28.9 PG (28-34); MEAN CORPUSCULAR HGB CONC 32.8 g/dL (30-36); MEAN PLATELET VOLUME 8.8 FL (6.5-11.5); RED BLOOD COUNT 4.14 X10e (3.90-5.60); RED CELL DISTRIBUTION WIDTH 14.9 % (11.0-15.5); WHITE BLOOD COUNT 8.5 X10e3 (4.0-10.5)
[2017-01-16 07:30] LABS: ALBUMIN SERUM 3.3 g/dL (3.5-5.0); ALKALINE PHOSPHATASE 58 U/L (32-92); ALT (SGPT) 14 U/L (10-40); AST (SGOT) 14 U/L (10-42); BILIRUBIN,TOTAL 0.7 mg/dL (0.2-2.0); BLOOD UREA NITROGEN 6 mg/dL (9-23); CALCIUM SERUM 9.1 mg/dL (8.4-10.2); CARBON DIOXIDE 25 mmol/L (22-31); CHLORIDE 104 mmol/L (100-111); CREATININE SERUM 0.8 mg/dL (0.6-1.4); GLOM FILT RATE Estimated ABOVE60 mL/min (>60); GLUCOSE FASTING 123 mg/dL (70-110); POTASSIUM 3.9 mmol/L (3.5-5.1); PROTEIN TOTAL SERUM 6.9 g/dL (6.0-8.3); SODIUM 138 mmol/L (135-145)
[2017-01-17 07:46] LABS: HEMATOCRIT 35.1 % (38.0-50.0); HEMOGLOBIN 11.5 gm/dL (13.0-16.0); MEAN CELL VOLUME 87.7 FL (83-96); MEAN CORPUSCULAR HEMOGLOBIN 28.8 PG (28-34); MEAN CORPUSCULAR HGB CONC 32.8 g/dL (30-36); MEAN PLATELET VOLUME 8.8 FL (6.5-11.5); RED CELL DISTRIBUTION WIDTH 14.7 % (11.0-15.5); WHITE BLOOD COUNT 7.4 X10e3 (4.0-10.5)
[2017-01-17 08:10] LABS: ALBUMIN SERUM 3.2 g/dL (3.5-5.0); ALKALINE PHOSPHATASE 61 U/L (32-92); ALT (SGPT) 14 U/L (10-40); AST (SGOT) 17 U/L (10-42); BILIRUBIN,TOTAL 0.6 mg/dL (0.2-2.0); BLOOD UREA NITROGEN 6 mg/dL (9-23); BUN/CREATININE RATIO 6.66; CALCIUM SERUM 9.1 mg/dL (8.4-10.2); CARBON DIOXIDE 28 mmol/L (22-31); CHLORIDE 104 mmol/L (100-111); CREATININE SERUM 0.9 mg/dL (0.6-1.4); GLOM FILT RATE Estimated ABOVE60 mL/min (>60); GLUCOSE FASTING 106 mg/dL (70-110); POTASSIUM 4.8 mmol/L (3.5-5.1); PROTEIN TOTAL SERUM 6.1 g/dL (6.0-8.3); SODIUM 139 mmol/L (135-145)
[2017-01-18 06:09] LABS: HEMATOCRIT 34.2 % (38.0-50.0); HEMOGLOBIN 11.3 gm/dL (13.0-16.0); MEAN CELL VOLUME 87.7 FL (83-96); MEAN CORPUSCULAR HEMOGLOBIN 28.9 PG (28-34); MEAN PLATELET VOLUME 8.8 FL (6.5-11.5); RED BLOOD COUNT 3.9 X10e (3.90-5.60); RED CELL DISTRIBUTION WIDTH 14.5 % (11.0-15.5); WHITE BLOOD COUNT 6.5 X10e3 (4.0-10.5)
[2017-01-18 06:58] LABS: ALBUMIN SERUM 3.2 g/dL (3.5-5.0); ALKALINE PHOSPHATASE 55 U/L (32-92); ALT (SGPT) 20 U/L (10-40); AST (SGOT) 23 U/L (10-42); BILIRUBIN,TOTAL 0.5 mg/dL (0.2-2.0); BLOOD UREA NITROGEN 7 mg/dL (9-23); BUN/CREATININE RATIO 8.75; CALCIUM SERUM 8.8 mg/dL (8.4-10.2); CARBON DIOXIDE 25 mmol/L (22-31); CHLORIDE 103 mmol/L (100-111); CREATININE SERUM 0.8 mg/dL (0.6-1.4); GLOM FILT RATE Estimated ABOVE60 mL/min (>60); GLUCOSE FASTING 131 mg/dL (70-110); POTASSIUM 3.9 mmol/L (3.5-5.1); PROTEIN TOTAL SERUM 6.4 g/dL (6.0-8.3); SODIUM 138 mmol/L (135-145)
[2017-01-18] MEDS ORDERED: FINASTERIDE5 M1 PO (11:58)
[2017-01-21 01:00] LABS: PSA, FREE 0.44 ng/mL (())
[2017-06-01] MEDS ORDERED: METFORMIN PO (16:08)
[2017-06-01] MEDS ORDERED: AMARYL PO (16:08)
[2017-06-01] MEDS ORDERED: AMLODIPINE-BEN1 EAC2 PO (16:09)
[2017-06-01] MEDS ORDERED: MICROZIDE12.5 M1 PO (16:09)
[2017-06-01] MEDS ORDERED: ATORVASTATIN CA10 MG PO (16:09)
== END 2017-01-18 13:57 | disposition home or self-care (01) | DRG 376 ==
LOC: COPS 09:38 → C2A 15:04
PROVIDERS: Internal Medicine; Nurse Practitioner Family; Urology
PROC: 0DBP8ZX Excision of Rectum, Via Natural or Artificial Opening Endoscopic, Diagnostic (ICD-10-PCS; principal; 2017-01-14 11:30)
PROC: 0DBL8ZX Excision of Transverse Colon, Via Natural or Artificial Opening Endoscopic, Diagnostic (ICD-10-PCS; 2017-01-14 11:30)
PROC: B24BYZZ Ultrasonography of Heart with Aorta using Other Contrast (ICD-10-PCS; 2017-01-15)
DX: C20 Malignant neoplasm of rectum (principal); E11.9 Type 2 diabetes mellitus without complications; I44.39 Other atrioventricular block; R15.9 Full incontinence of feces; R63.4 Abnormal weight loss; I10 Essential (primary) hypertension; E78.5 Hyperlipidemia, unspecified; Z79.84 Long term (current) use of oral hypoglycemic drugs; G47.33 Obstructive sleep apnea (adult) (pediatric); Z87.891 Personal history of nicotine dependence; E78.00 Pure hypercholesterolemia, unspecified; D01.0 Carcinoma in situ of colon; H40.9 Unspecified glaucoma; N40.1 Benign prostatic hyperplasia with lower urinary tract symptoms; R33.8 Other retention of urine; K57.90 Diverticulosis of intestine, part unspecified, without perforation or abscess without bleeding; N32.0 Bladder-neck obstruction
CPT/HCPCS: 71020; 72197; 74020; 74177; 78452; 80053; 82378; 82947; 83735; 84100; 84134; 84153; 84154; 85025; 85027; 86850; 86900; 86901; 88305; 93005; 93017; 93306; A9500; A9577; C9113; J0295; J1650; J1815; J2270; J2785; J3010; Q9967

== ENCOUNTER 2017-01-22 07:30 | Observation (INO) | payer OTHER ==
--- NOTE | ~2017-01-22 | OR ---
Unit #: [id number] #: [id number] Patient: CONNOR FRANK [id number] [address] [place], [place] [address] [id number] I MR#: [id number] NAME: CONNOR FRANK. ROOM: [facility] Date of Procedure: 01/22/2017 Admission Date: 01/22/2017 Surgeon: Shen Astorga M.D. : 1930 Attending Physician: Shen Astorga M.D. Referring Physician: Shen Astorga M.D. Primary Care Physician: Len Johnston M.D. OPERATIVE REPORT PREOPERATIVE DIAGNOSIS Urinary retention from benign prostatic hypertrophy. POSTOPERATIVE DIAGNOSES Urinary retention from benign prostatic hypertrophy, with bulbar urethral stricture. PROCEDURE PERFORMED Cystoscopy with transurethral resection of prostate and urethral dilation. ANESTHESIA General. INDICATIONS FOR PROCEDURE This 86-year-old man with newly diagnosed rectal cancer has a chronically elevated residual urine and voiding difficulty, thought likely to worsen to become problematic pending further treatment. He has trilobar BPH. DESCRIPTION OF PROCEDURE The patient was given preoperative antibiotics and satisfactory general anesthesia. He was positioned in dorsal lithotomy and the genitalia were prepped and draped. The 21-Venezuelan rigid cystoscope was introduced with 30-degree lens and video noting a moderately tight stricture of the bulbar urethra, which was then dilated with Harsh sounds, sizes 22, 24 and 26, unfortunately causing mild trauma and bleeding. The bladder was then entered and thoroughly examined confirming trilobar BPH orifices very close to the bladder neck and otherwise normal mucosa, but severe trabeculation and a benign diverticulum on the left posterior wall bladder. The 24-Venezuelan noncontinuous flow resectoscope was elected due to the presence of stricture and this was placed and used with the cutting loop at the standard settings to take down the median lobe, careful to preserve the orifices, then the left and right lobes, and the floor of the prostate. There was significant anterior tissue taken also. This left a very wide open bladder neck. Additional cautious apical trimming preserving the verumontanum was performed. There was good hemostasis throughout. At the completion of the procedure, after assuring evacuation of all chips, a rollerball was applied to all mucosal edges and aggressively at 5 and 7 o'clock with minimal venous oozing. A 22-Venezuelan 3-way catheter was easily placed without a catheter guide, but was noted to have a 10 mL balloon. As none with a 30 mL balloon were available, a 24-Venezuelan 3-way was then placed and connected to 3-way irrigation. Chips Unit #: [id number] #: [id number] Patient: CONNOR FRANK are sent in formalin. The patient will be observed overnight. Dictated by... Shen Astorga M.D. WILMAN/jannette TD: 01/23/2017 05:20 JOB #: [id number] CC: Cody Blair M.D. Robert C. Stewart, M.D. Gilbert E. Marchal, M.D. OPERATIVE REPORT Page 1 of 1 X Shen Astorga MD X PROCEDURE OPERATIVE NOTE
--- NOTE | ~2017-01-22 | EKG ---
PATIENT: CONNOR FRANK UNIT #: [id number] Ventricular Rate: 94 BPM Atrial Rate: 94 BPM P-R Interval: 200 ms QRS Duration: 96 ms Q-T Interval: 352 ms QTC Calculation(Bezet): 440 ms P Douglas: 136 degrees Calculated R Douglas: 13 degrees Calculated T Douglas: -4 degrees Diagnosis Line: Unusual P axis, possible ectopic atrial rhythm Diagnosis Line: Cannot rule out Inferior infarct Diagnosis Line: Abnormal ECG Diagnosis Line: When compared with ECG of 14-JAN-2017 12:44, Diagnosis Line: Ectopic atrial rhythm has replaced Sinus rhythm Diagnosis Line: Confirmed by LOIS DIAZ MD ([id number]) on 01/25/2017 Diagnosis Line: 10:44:04 PM INTERPRETING MD: EMILY PETER
[~2017-01-22 07:30] MED LIST changes: +AMARYL PO; +FINASTERIDE5 M1 PO; +LOTREL 5/101 CAP PO
[2017-01-22 08:37] LABS: CALCIUM SERUM 9.4 mg/dL (8.4-10.2); CREATININE SERUM 0.5 mg/dL (0.6-1.4); GLOM FILT RATE Estimated 97.5 mL/min (>60); POTASSIUM 3.8 mmol/L (3.5-5.1)
[2017-01-23 03:32] LABS: BASOPHIL# 0.1 X10e3 (0-0.3); BASOPHIL% 0.5 % (0-2.5); EOSINOPHIL# 0.1 X10e3 (0-0.7); EOSINOPHIL% 0.6 % (0.0-7.0); HEMATOCRIT 32.9 % (38.0-50.0); HEMOGLOBIN 10.8 gm/dL (13.0-16.0); LYMPHOCYTE# 1.6 X10e3 (1.0-3.5); LYMPHOCYTE% 11.8 % (17.0-45.0); MEAN CELL VOLUME 88.1 FL (83-96); MEAN PLATELET VOLUME 9.4 FL (6.5-11.5); MONOCYTE# 1.6 X10e3 (0-1.0); MONOCYTE% 11.7 % (3.0-12.0); NEUTROPHIL# 10.4 X10e3 (1.5-7.1); NEUTROPHIL% 75.4 % (40-75); PLATELET COUNT 278 X10e3 (140-420); RED BLOOD COUNT 3.73 X10e (3.90-5.60); RED CELL DISTRIBUTION WIDTH 15.2 % (11.0-15.5); WHITE BLOOD COUNT 13.7 X10e3 (4.0-10.5)
[2017-01-23 03:33] LABS: DIFF IND NO
[2017-01-23 04:04] LABS: BUN/CREATININE RATIO 13.33; CALCIUM SERUM 8.8 mg/dL (8.4-10.2); CREATININE SERUM 0.9 mg/dL (0.6-1.4); GLOM FILT RATE Estimated 76.5 mL/min (>60); POTASSIUM 4.6 mmol/L (3.5-5.1)
[2017-01-23] MEDS ORDERED: DOCUSATE SODIU100 MG PO (12:25)
[2017-06-01] MEDS ORDERED: METFORMIN PO (16:08)
[2017-06-01] MEDS ORDERED: AMARYL PO (16:08)
[2017-06-01] MEDS ORDERED: ATORVASTATIN CA10 MG PO (16:09)
[2017-06-01] MEDS ORDERED: MICROZIDE12.5 M1 PO (16:09)
[2017-06-01] MEDS ORDERED: AMLODIPINE-BEN1 EAC2 PO (16:09)
== END 2017-01-23 13:57 | disposition home or self-care (01) ==
LOC: CSUR 07:30 → CPACUOF 10:41 → C4B 15:07
PROVIDERS: Urology
DX: N40.1 Benign prostatic hyperplasia with lower urinary tract symptoms (principal); R33.8 Other retention of urine; N35.8 Other urethral stricture; N32.89 Other specified disorders of bladder; N32.3 Diverticulum of bladder; C20 Malignant neoplasm of rectum; Z86.010 Personal history of colon polyps; Z85.828 Personal history of other malignant neoplasm of skin
CPT/HCPCS: 80048; 82947; 85025; 88305; 93005; 94761; G0378; J0690; J1170; J2405; J3010

== ENCOUNTER 2017-04-22 16:12 | Emergency (ER) | payer OTHER ==
--- NOTE | ~2017-04-22 | CT52 ---
[facility] A Service of [facility] RADIOLOGY TEXT RESULTS PATIENT: CONNOR FRANK LOCATION: [facility] : [birth year] UNIT #: [id number] AGE: [address]: Candelario Glass MD SEX: M ORDER DR: [id number] [facility] [address] [place], [place] [address] [id number] MR#: [id number] Acc #: [id number] NAME: CONNOR FRANK : 1930 SEX: M STUDY DATE/TIME: 04/22/2017 17:22 UNIT: [facility] ROOM: STUDY DESCRIPTION: CT Cervical Spine Wo Cont Attending Physician: Candelario Glass M.D. Ordering Physician: Candelario Glass M.D. Primary Care Physician: Len Johnston M.D. MEDICAL IMAGING REPORT This report is preliminary unless electronic signature is present EXAM Cervical spine CT HISTORY Patient fell 2 days ago with neck pain since. TECHNIQUE Thin-section axial images were obtained from the skull base to the upper thoracic spine and evaluated at bone and soft tissue windows with multiplanar reformats. This CT exam was performed with one or more of the following radiation dose reduction techniques: Automatic exposure control, adjustment of mA and/or kV according to patient size, and iterative reconstruction. FINDINGS Alignment is satisfactory. Moderate degenerative changes are seen at C5-6 and C6-7 with disc space narrowing and posterior osteophytes. Degenerative changes are seen in the posterior facets at all cervical levels, most prominently at C3-4 on the left, C4-5 on the left, and C6-7 bilaterally. There is ankylosis of the facet at C5-6 on the right with severe facet joint narrowing on the left. No fractures or destructive bone lesions are seen. No paraspinous masses are noted. 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 No acute bony abnormalities are noted. Dictated by... Shen Newman M.D. [facility] A Service of [facility] RADIOLOGY TEXT RESULTS PATIENT: CONNOR FRANK LOCATION: [facility] : [birth year] UNIT #: [id number] AGE: [address]: Candelario Glass MD SEX: M ORDER DR: THIS IS AN ELECTRONICALLY VERIFIED REPORT Shen Newman M.D. at 04/28/2017 7:10 AM JOCELYN/clayton TD: 04/22/2017 23:38 JOB #: [id number] MEDICAL IMAGING REPORT Page 1 of 1 COPY
[~2017-04-22 16:12] MED LIST changes: -AMLODIPINE-BEN1 EAC2 PO; -ATORVASTATIN CA10 MG PO; -MICROZIDE12.5 M1 PO
[2017-04-22 17:15] LABS: BASOPHIL# 0.1 X10e3 (0-0.3); BASOPHIL% 0.7 % (0-2.5); EOSINOPHIL# 0.1 X10e3 (0-0.7); EOSINOPHIL% 0.7 % (0.0-7.0); HEMATOCRIT 34.5 % (38.0-50.0); HEMOGLOBIN 11.5 gm/dL (13.0-16.0); LYMPHOCYTE# 0.6 X10e3 (1.0-3.5); MEAN CELL VOLUME 95.7 FL (83-96); MEAN CORPUSCULAR HEMOGLOBIN 31.9 PG (28-34); MEAN CORPUSCULAR HGB CONC 33.4 g/dL (30-36); MEAN PLATELET VOLUME 8.2 FL (6.5-11.5); MONOCYTE% 12.4 % (3.0-12.0); NEUTROPHIL# 6.2 X10e3 (1.5-7.1); NEUTROPHIL% 78.2 % (40-75); PLATELET COUNT 286 X10e3 (140-420); RED BLOOD COUNT 3.61 X10e (3.90-5.60); WHITE BLOOD COUNT 7.9 X10e3 (4.0-10.5)
[2017-04-22 17:16] LABS: DIFF IND YES
[2017-04-22 17:22] LABS: INR 0.9
[2017-04-22 17:29] LABS: ALBUMIN SERUM 3.8 g/dL (3.5-5.0); BILIRUBIN, DIRECT 0.1 mg/dL (0.0-0.2); BILIRUBIN,INDIRECT 0.3 mg/dL (0.0-0.9); BILIRUBIN,TOTAL 0.4 mg/dL (0.2-2.0); BUN/CREATININE RATIO 15.71; CALCIUM SERUM 9.3 mg/dL (8.4-10.2); CREATININE SERUM 0.7 mg/dL (0.6-1.4); GLOM FILT RATE Estimated 84.9 mL/min (>60); POTASSIUM 4.1 mmol/L (3.5-5.1); PROTEIN TOTAL SERUM 7.2 g/dL (6.0-8.3)
[2017-04-22 17:46] LABS: OVALOCYTES PRESENT; PLATELET ESTIMATE NORMAL (NORMAL)
[2017-06-01] MEDS ORDERED: METFORMIN PO (16:08)
[2017-06-01] MEDS ORDERED: AMARYL PO (16:08)
[2017-06-01] MEDS ORDERED: ATORVASTATIN CA10 MG PO (16:09)
[2017-06-01] MEDS ORDERED: AMLODIPINE-BEN1 EAC2 PO (16:09)
[2017-06-01] MEDS ORDERED: MICROZIDE12.5 M1 PO (16:09)
== END 2017-04-22 17:16 | disposition home or self-care (01) ==
LOC: CED 16:12
PROVIDERS: Emergency Medicine
DX: S06.5X0A Traumatic subdural hemorrhage without loss of consciousness, initial encounter (principal); W19.XXXA Unspecified fall, initial encounter; Y92.098 Other place in other non-institutional residence as the place of occurrence of the external cause
CPT/HCPCS: 36415; 72125; 80048; 80076; 85025; 85610; 86850; 86900; 86901; 99285

== ENCOUNTER → 2017-04-22 | Outpatient (CLI) | payer OTHER ==
[~2017-04-22] MED LIST changes: +AMLODIPINE-BEN1 EAC2 PO; +ATORVASTATIN CA10 MG PO; +DOCUSATE SODIU100 MG PO; +MICROZIDE12.5 M1 PO
--- NOTE | ~2017-04-22 | CT71 ---
[facility] A Service of [facility] RADIOLOGY TEXT RESULTS PATIENT: CONNOR FRANK LOCATION: [facility] : [birth year] UNIT #: [id number] AGE: [address]: Dm Brooke MD SEX: M ORDER DR: [id number] [facility] [address] [place], [place] [address] [id number] O MR#: [id number] Acc #: [id number] NAME: CONNOR FRANK : 1930 SEX: M STUDY DATE/TIME: 04/22/2017 16:04 [facility] ROOM: STUDY DESCRIPTION: CT Head Wo Contrast Attending Physician: Dm Brooke M.D. Referring Physician: Dm Brooke M.D. Ordering Physician: Dm Brooke M.D. Primary Care Physician: Len Johnston M.D. MEDICAL IMAGING REPORT This report is preliminary unless electronic signature is present EXAM Noncontrast head CT. HISTORY 86-year-old male fell 2 days ago hitting left side of head on concrete. PET CT performed earlier today revealed subdural hematoma. COMPARISON PET CT 04/22/2017 FINDINGS Axial noncontrast imaging was performed through the brain. This CT exam was performed with one or more of the following radiation dose reduction techniques: Automatic exposure control, adjustment of mA and/or kV according to patient size, and iterative reconstruction. Examination demonstrates a hyperdense collection over the right frontal parietal region measuring over 9 cm in length from anterior to posterior and about 0.9 cm in greatest depth. This is compatible with an acute or subacute subdural hematoma. There is minimal mass effect with estimated about 2 mm of lspjv-jr-vote midline shift. There is some effacement of the overlying sulci but no downward herniation identified. Basilar cisterns unremarkable. No intraparenchymal hemorrhage is identified. Bony calvarium, skull base, mastoids and sinuses unremarkable. IMPRESSION CT confirms an acute or subacute subdural hematoma overlying the right frontoparietal region measuring over 9 cm in length and up to 9 mm in thickness. This does produce minimal mass effect with less than 2 mm of [id number]-ln-[id number] midline shift. No intraparenchymal hemorrhage identified. No significant change from the patient's PET CT performed earlier today. [facility] A Service of [facility] RADIOLOGY TEXT RESULTS PATIENT: CONNOR FRANK LOCATION: [facility] : [birth year] UNIT #: [id number] AGE: [address]: Dm Brooke MD SEX: M ORDER DR: Dictated by... Joaquin Agustin M.D. THIS IS AN ELECTRONICALLY VERIFIED REPORT Joaquin Agustin M.D. at 04/23/2017 10:05 AM JAYDEN/clayton TD: 04/22/2017 22:41 JOB #: [id number] MEDICAL IMAGING REPORT Page 1 of 1 COPY
== END | disposition home or self-care (01) ==
LOC: CCAT 15:00
DX: S06.5X0A Traumatic subdural hemorrhage without loss of consciousness, initial encounter (principal); R93.0 Abnormal findings on diagnostic imaging of skull and head, not elsewhere classified; C20 Malignant neoplasm of rectum; H66.002 Acute suppurative otitis media without spontaneous rupture of ear drum, left ear; E86.0 Dehydration; I47.1 Supraventricular tachycardia
CPT/HCPCS: 70450

== ENCOUNTER → 2017-05-19 | Outpatient (CLI) | payer OTHER ==
[~2017-05-19] MED LIST changes: +AMLODIPINE-BEN1 EAC2 PO; +ATORVASTATIN CA10 MG PO; +MICROZIDE12.5 M1 PO
--- NOTE | ~2017-05-19 | CT4 ---
[facility] A Service of [facility] RADIOLOGY TEXT RESULTS PATIENT: CONNOR FRANK [facility] [birth year] UNIT #: [id number] AGE: [address]: Dm Brooke MD SEX: M ORDER DR: [id number] [facility] [address] [place], [place] [address] [id number] O MR#: [id number] Acc #: [id number] NAME: CONNOR FRANK. : 1930 SEX: M STUDY DATE/TIME: 05/19/2017 14:32 [facility] ROOM: STUDY DESCRIPTION: CT Abd and Pelv Wo Cont Attending Physician: Dm Brooke M.D. Referring Physician: Dm Brooke M.D. Ordering Physician: Dm Brooke M.D. Primary Care Physician: Len Johnston M.D. MEDICAL IMAGING REPORT This report is preliminary unless electronic signature is present EXAM CT of abdomen and pelvis without contrast. INDICATIONS Follow up rectal cancer. Observation of malignant process. TECHNIQUE CT abdomen and pelvis performed with oral contrast only. Coronal and sagittal reformatted images were obtained. This CT exam was performed with one or more of the following radiation dose reduction techniques: automatic exposure control, adjustment of mA and/or kV according to patient size, and iterative reconstruction. COMPARISON Comparison with PET/CT, 04/22/2017. FINDINGS There is some scarring/atelectasis within the lung bases. Evaluation of the solid organs and viscera of the abdomen and pelvis is limited due to the lack of IV contrast. The liver is unremarkable. The gallbladder and spleen are unremarkable. There are bilateral renal cysts. The adrenal glands and pancreas are unremarkable. PELVIS: There is no significant change in the rectal thickening consistent with the patient's history of rectal cancer. Small urinary bladder diverticulum. Extensive diverticulosis involving the sigmoid. There is no free fluid within the pelvis. The bone windows are unremarkable. IMPRESSION Stable thickening of the rectum. [facility] A Service of [facility] RADIOLOGY TEXT RESULTS PATIENT: CONNOR FRANK LOCATION: [facility] : [birth year] UNIT #: [id number] AGE: [address]: Dm Brooke MD SEX: M ORDER DR: Dictated by... Enrico Agustin M.D. THIS IS AN ELECTRONICALLY VERIFIED REPORT Enrico Agustin M.D. at 05/21/2017 4:00 PM HAJA/donovan TD: 05/20/2017 16:38 JOB #: [id number] MEDICAL IMAGING REPORT Page 1 of 1 COPY
--- NOTE | ~2017-05-19 | CT71 ---
[facility] A Service of [facility] RADIOLOGY TEXT RESULTS PATIENT: CONNOR FRANK LOCATION: [facility] : [birth year] UNIT #: [id number] AGE: [address]: Dm Brooke MD SEX: M ORDER DR: [id number] [facility] [address] [place], [place] [address] [id number] O MR#: [id number] [facility] #: [id number] NAME: CONNOR FRANK. : 1930 SEX: M STUDY DATE/TIME: 05/19/2017 14:26 UNIT: [facility] ROOM: STUDY DESCRIPTION: CT Head Wo Contrast Attending Physician: Dm Brooke M.D. Referring Physician: Dm Brooke M.D. Ordering Physician: Dm Brooke M.D. Primary Care Physician: Len Johnston M.D. MEDICAL IMAGING REPORT This report is preliminary unless electronic signature is present EXAM CT of the head without contrast. CLINICAL HISTORY This patient underwent a head CT on April 22, 2017, which showed a right subdural hematoma. TECHNIQUE Axial CT images were obtained from the vertex of the skull through skull base. No intravenous contrast material was administered. This CT exam was performed with one or more of the following radiation dose reduction techniques: automatic exposure control, adjustment of mA and/or kV according to patient size, and iterative reconstruction. FINDINGS Subacute right frontal subdural hematoma is noted. I do not really think it is significantly changed in size when compared to the exam from the April 22, 2017. There is very mild midline shift to the left which is probably stable to perhaps minimally improved when compared to the prior examination. No new areas of hemorrhage are identified. This patient does have diffuse cerebral atrophy with compensatory ventricular dilatation which is in keeping with the age of 86. I do not see any focal areas of decreased attenuation. There is some mild prominent extraaxial spaces seen overlying the left frontal lobe again without any new hemorrhage seen. The patient has some mucous retention cysts within the left maxillary sinus. Remainder of the visualized paranasal sinuses appear clear. I do not see any focal soft tissue abnormalities. IMPRESSION 1. Patient has a right frontal convexity subacute subdural hematoma which is probably stable in size when compared to the prior STS. [facility] A Service of [facility] & [facility] RADIOLOGY TEXT RESULTS PATIENT: CONNOR FRANK LOCATION: [facility] : [birth year] UNIT #: [id number] AGE: [address]: Dm Brooke MD SEX: M ORDER DR: examination. There is some very mild midline shift to the left associated with this hematoma which is stable to perhaps mildly improved when compared to the prior study. No new areas of hemorrhage are identified on the current exam. Dictated by... Lauryn Esparza M.D. THIS IS AN ELECTRONICALLY VERIFIED REPORT Lauryn Esparza M.D. at 05/21/2017 7:13 AM HERBIE/donovan TD: 05/20/2017 17:03 JOB #: [id number] MEDICAL IMAGING REPORT Page 1 of 1 COPY
== END | disposition home or self-care (01) ==
LOC: CCAT 12:33
DX: C20 Malignant neoplasm of rectum (principal); H66.002 Acute suppurative otitis media without spontaneous rupture of ear drum, left ear; E86.0 Dehydration; I47.1 Supraventricular tachycardia; I62.02 Nontraumatic subacute subdural hemorrhage
CPT/HCPCS: 70450; 74176

== ENCOUNTER → 2017-06-01 | Day surgery (SDC) | payer OTHER ==
--- NOTE | ~2017-06-01 | OR ---
Unit #: [id number] #: [id number] Patient: CONNOR GRANADO [id number] [facility] [address] [place], [place] [address] [id number] O MR#: [id number] NAME: CONNOR GRANADO ROOM: Date of Procedure: 06/01/2017 Admission Date: 06/01/2017 Surgeon: Shen Aguilera M.D. : 1930 Attending Physician: Shen Aguilera M.D. Primary Care Physician: Len Johnston M.D. OPERATIVE REPORT PRIMARY CARE PHYSICIAN Dr. Len Johnston. Medical oncologist, Dr. Dm Brooke. PREOPERATIVE DIAGNOSIS Rectal cancer, status post chemotherapy and radiation. POSTOPERATIVE DIAGNOSIS Rectal cancer, status post chemotherapy and radiation. PROCEDURE PERFORMED Flexible sigmoidoscopy to 25 cm with biopsy of residual rectal mass x6. ANESTHESIA Monitored anesthesia. INDICATIONS FOR PROCEDURE Mr. Granado is an 86-year-old gentleman, who was previously diagnosed with a very low rectal carcinoma. On digital examination, it is well within 2 cm at the anal verge. He has undergone chemotherapy and radiation by Dr. Brooke and was sent back for followup endoscopic evaluation to evaluate residual disease before deciding on further treatment options. DESCRIPTION OF PROCEDURE The patient was admitted to [facility], positively identified, transported to the endoscopy unit, and after appropriate monitoring and positioning, he was sedated by the anesthesiologist. On rectal examination, he has a hard nodular and ulcerated mass just inside the anal verge. There was no active bleeding at this time. After appropriate sedation by the anesthesiologist, sigmoidoscope was passed through the anal verge up to 25 cm. As I came back in a retrograde fashion, we could visualize the mass. Biopsies x6 from merchandiser retail representative areas were taken and sent to Pathology to evaluate for residual disease. The rest of the evaluation was unremarkable. The patient tolerated the procedure well and was transported to recovery in stable condition. Findings were discussed with his family. We will call him with results of the biopsy report when it is available. Dictated by... Shen Aguilera M.D. RS/modl Unit #: [id number] #: [id number] Patient: CONNOR GRANADO TD: 06/01/2017 16:40 JOB #: [id number] OPERATIVE REPORT Page 1 of 1 X Shen Aguilera MD PROCEDURE OPERATIVE NOTE
--- NOTE | ~2017-06-01 | HP ---
Unit #: [id number] #: [id number] Patient: CONNOR GRANADO [id number] [address] [address] [id number] O MR#: [id number] NAME: CONNOR GRANADO. ROOM: Age: Sex: M Admission Date: 06/01/2017 : 1930 Attending Physician: Shen Aguilera M.D. Primary Care Physician: Len Johnston M.D. HISTORY AND PHYSICAL HISTORY OF PRESENT ILLNESS Mr. Granado is an 86-year-old gentleman who was previously diagnosed with a rectal cancer. He has been treated with chemotherapy and radiation and is sent by Medical Oncology for evaluation and biopsy to see if there is any residual disease and for further discussion with the patient and his family about ongoing treatment. The mass is palpable well within 2 cm of the anal verge, so resection would require an abdominoperineal resection. At 86, I do not think he would do well with a pull-through, especially given the very ulcerative and low position of the mass. PAST MEDICAL HISTORY 1. Glaucoma. 2. Cardiac arrhythmia. 3. Two prior colonoscopies with polypectomy. 4. Benign prostatic hypertrophy. 5. Type 2 diabetes. 6. Hypertension. 7. Hypercholesterolemia. 8. Right inguinal hernia repair. 9. Bilateral cataract extraction. 10. Previous prostate biopsy. ALLERGIES No known drug allergies. MEDICATIONS 1. Glucophage. 2. Amaryl. 3. Atorvastatin. 4. Microzide. 5. Amlodipine and benazepril. FAMILY HISTORY He is unaware of any chronic or inheritable diseases. SOCIAL HISTORY Nonsmoker. Social alcohol drinker. Retired from [employer]. Five children and multiple grandchildren and great-grandchildren. REVIEW OF SYSTEMS Otherwise noncontributory. PHYSICAL EXAMINATION GENERAL: He is awake, alert, and oriented. Unit #: [id number] #: [id number] Patient: CONNOR GRANADO VITAL SIGNS: O2 saturations are 96% on room air, temperature is 97, pulse 72, respirations 20, and blood pressure 119/69. HEENT: Unremarkable. CARDIAC: Irregular rhythm. No murmurs. LUNGS: Clear. ABDOMEN: Soft. EXTREMITIES: No edema. NEUROLOGIC: Grossly intact. ASSESSMENT AND PLAN An 86-year-old gentleman for followup endoscopic evaluation and biopsy after treatment with chemotherapy and radiation for rectal cancer. I discussed the procedure with the patient including the risks, benefits, complications, and preoperative enemas to clear the rectal vault. He understands and agrees to proceed. Dictated by Cody Orantes TD: 06/01/2017 17:36 JOB #: [id number] HISTORY AND PHYSICAL Page 1 of 1 X Shen Aguilera MD X HISTORY AND PHYSICAL
== END | disposition home or self-care (01) ==
LOC: COPS 11:05
DX: K62.6 Ulcer of anus and rectum (principal); E11.9 Type 2 diabetes mellitus without complications; I10 Essential (primary) hypertension; N40.0 Benign prostatic hyperplasia without lower urinary tract symptoms; E78.00 Pure hypercholesterolemia, unspecified; Z86.010 Personal history of colon polyps; Z79.84 Long term (current) use of oral hypoglycemic drugs; Z79.899 Other long term (current) drug therapy; Z98.41 Cataract extraction status, right eye; Z98.42 Cataract extraction status, left eye; Z98.890 Other specified postprocedural states
CPT/HCPCS: 82947; 88305

== ENCOUNTER → 2017-06-25 | Outpatient (CLI) | payer OTHER ==
--- NOTE | ~2017-06-25 | CT105 ---
[facility] A Service of [facility] & [facility] RADIOLOGY TEXT RESULTS PATIENT: CONNOR FRANK [facility] [birth year] UNIT #: [id number] AGE: [address]: Dm Brooke MD SEX: M ORDER DR: [id number] [facility] [address] [facility] [place], [place] [address] [id number] O MR#: [id number] [facility] #: [id number] NAME: CONNOR FRANK : 1930 SEX: M STUDY DATE/TIME: 06/25/2017 10:11 UNIT: [facility] ROOM: STUDY DESCRIPTION: CT Pelvis W Cont Attending Physician: Dm Brooke M.D. Referring Physician: Dm Brooke M.D. Ordering Physician: Dm Brooke M.D. Primary Care Physician: Len Johnston M.D. MEDICAL IMAGING REPORT This report is preliminary unless electronic signature is present EXAM CT scan of the pelvis with contrast INDICATION Rectal cancer diagnosed in December,. Follow up cancer. COMPARISON STUDIES PET scan from 03/18/[address] abdomen and pelvis from 05/19/17. TECHNIQUE Axial 5 mm images were obtained through the chest with 100 cc of Isovue 370. Sagittal and coronal reconstructions were generated. This CT exam was performed with one or more of the following radiation dose reduction techniques: automatic exposure control, adjustment of mA and/or kV according to patient size, and iterative reconstruction. FINDINGS A portion of the right renal cyst is visible. The visualized aorta is normal in size. Small bowel is normal. There are sigmoid diverticula. There is wall thickening along the left side of the rectum which showed increased penetration accumulation consistent with given history of rectal cancer. This is about 15 mm in width and at least 3.8 cm from top to bottom and front to back. On the frontal images, the area of wall thickening is at least 8.5 cm in length. There is also thickening of the pelvic sidewall on the left side which showed increased uptake on the PET scan. This measures up to 1 cm in thickness. The findings are unchanged from 05/19/17. IMPRESSION 1. CT pelvis with contrast once again shows thickening of the left side of the lower rectum and thickening of the left pelvic sidewall. These STS. [facility] A Service of [facility] & [facility] RADIOLOGY TEXT RESULTS PATIENT: CONNOR FRANK LOCATION: [facility] : [birth year] UNIT #: [id number] AGE: [address]: Dm Brooke MD SEX: M ORDER DR: areas are increased in uptake on the PET scan consistent with malignancy. There has been no change from 05/19/17. 2. Otherwise, the study is negative. 3. Please note that the wall thickening is predominantly left sided in the rectum, but in the lower rectum, it is circumferential. Dictated by... Fermin Bauer M.D. THIS IS AN ELECTRONICALLY VERIFIED REPORT Fermin Bauer M.D. at 06/26/2017 6:24 AM Sung TD: 06/26/2017 00:17 JOB #: [id number] MEDICAL IMAGING REPORT Page 1 of 1 COPY
--- NOTE | ~2017-06-25 | CT55 ---
[facility] A Service of [facility] RADIOLOGY TEXT RESULTS PATIENT: CONNOR FRANK LOCATION: [facility] : [birth year] UNIT #: [id number] AGE: [address]: Dm Brooke MD SEX: M ORDER DR: [id number] [place] [address] [facility]. [place], [place] [address] [id number] O MR#: [id number] [facility] #: [id number] NAME: CONNOR FRANK : 1930 SEX: M STUDY DATE/TIME: 06/25/2017 10:11 UNIT: [facility] ROOM: STUDY DESCRIPTION: CT Chest W Con Attending Physician: Dm Brooke M.D. Referring Physician: Dm Brooke M.D. Ordering Physician: Dm Brooke M.D. Primary Care Physician: Len Johnston M.D. MEDICAL IMAGING REPORT This report is preliminary unless electronic signature is present EXAM CT chest INDICATIONS Pulmonary nodule. Rectal cancer. Abnormal PET/CT. TECHNIQUE CT of the chest with contrast (100 mL Isovue-370 IV contrast). Coronal and sagittal reconstructions were obtained. This CT exam was performed with one or more of the following radiation dose reduction techniques: automatic exposure control, adjustment of mA and/or kV according to patient size, and iterative reconstruction. COMPARISON PET/CT 06/18/2017. FINDINGS There is no mediastinal or hilar adenopathy. There is no adenopathy to account for the FDG uptake on the recent PET/CT. No pericardial or pleural effusion. No suspicious pulmonary findings. Subcentimeter axillary lymph nodes are again noted. The largest node is in the right inferior axilla measuring 0.7 cm in short axis. This is not considered pathologically enlarged. Continued followup is warranted. No suspicious pulmonary findings. There is minimal atelectasis/scarring in the lung bases. Central airways are patent. Limited images of the upper abdomen were obtained. There are no new findings. No acute osseous abnormalities. [facility] A Service of [facility] RADIOLOGY TEXT RESULTS PATIENT: CONNOR FRANK LOCATION: [facility] : [birth year] UNIT #: [id number] AGE: [address]: Dm Brooke MD SEX: M ORDER DR: IMPRESSION 1. No enlarged hilar lymph nodes. Specifically, there is no evidence of a right hilar lymph node/mass to account for the FDG uptake seen on the recent PET/CT. This area of uptake is presumably due to the patient's pulmonary vasculature. 2. Small subcentimeter axillary lymph nodes are noted and should be followed. This would be an unusual location for metastatic rectal carcinoma, however should be followed to confirm. Dictated by... Paul Cheek M.D. THIS IS AN ELECTRONICALLY VERIFIED REPORT Paul Cheek M.D. at 06/29/2017 9:23 AM ANDREW/aleisha TD: 06/25/2017 20:48 JOB #: [id number] MEDICAL IMAGING REPORT Page 1 of 1 COPY
[2017-06-25 11:51] LABS: POC - CREATININE 0.73 mg/dL (0.64-1.27); POC - GFR >60.0 mL/min (>60)
== END | disposition home or self-care (01) ==
LOC: CCAT 08:56
PROVIDERS: Internal Medicine Hematology & Oncology
DX: C20 Malignant neoplasm of rectum (principal); H66.002 Acute suppurative otitis media without spontaneous rupture of ear drum, left ear; E86.0 Dehydration; I47.1 Supraventricular tachycardia
CPT/HCPCS: 71260; 72193; 82565; Q9967